=== PATIENT | male | born 1995 | race Caucasian/White ===

== ENCOUNTER 2019-03-20 21:28 | Emergency (ER) | payer SELFPAY ==
[~2019-03-20] VITALS: Ht 165.1 cm; Wt 80.7 kg
[2019-03-20 21:43] VITALS: BP 134/65
--- NOTE | 2019-03-20 21:46 | NUR ---
WHEEL CHAIR ASSISTED TO LOBBY.
--- NOTE | 2019-03-20 21:55 | NUR ---
PT TAKEN TO XRAY FROM [facility]
--- NOTE | 2019-03-20 22:01 | NUR ---
PT RETURN FROM [facility] TO [facility]
--- NOTE | 2019-03-20 22:10 | NUR ---
PATIENT WHEELCHAIRED TO ER BED 4
--- NOTE | 2019-03-20 22:24 | NUR ---
Note [email or web address] in EDM - 03/20/19 at 2226 by MEDBEN 23 Y/O MALE BIB SELF C/O OF ANKLE PAIN X1 HR AFTER PLAYING SOCCER AND ROLLED RIGHT ANKLE. EDEMA ON LATERAL SIDE. SLIGHT RED EDEMA. 10/10 BURNING PAIN. PAIN EXACERBATED WITH AMBULATION AND PRESSURE. CAP REFILL <3 SEC. NUMBNESS TO AFFECTED AREA ONLY. +2 PERDAL PULSES BILATERALLY. ALOCX4. DENIES N/V/D. HX: DENIES RX. NONE NKDA
--- NOTE | 2019-03-20 22:26 | NUR ---
23 Y/O MALE BIB SELF C/O OF ANKLE PAIN X1 HR AFTER PLAYING SOCCER AND ROLLED RIGHT ANKLE. EDEMA ON LATERAL SIDE. SLIGHT RED EDEMA. 10/10 BURNING PAIN. PAIN EXACERBATED WITH AMBULATION AND PRESSURE. CAP REFILL <3 SEC. NUMBNESS TO AFFECTED AREA ONLY. +2 PERDAL PULSES BILATERALLY. ALOCX4. DENIES N/V/D. ERMD MADE AWARE OF STATUS. SIDE RAILS X1. ELEVATED RIGHT ANKLE AND PLACED ICE PACK. HX: DENIES RX. NONE NKDA
--- NOTE | 2019-03-20 22:44 | NUR ---
PATIENT IS SITTING QUIETLY IN BED AND GIRLFRIEND AT BEDSIDE.
[2019-03-20] MEDS ORDERED: IBUPROFEN 800 MG TAB PO ONE (22:45)
--- NOTE | 2019-03-20 23:10 | NUR ---
PLACED KAITLIN WRAP ON PATIENT'S RIGHT ANKLE. SIZED CRUTCHES TO PATIENT
[2019-03-20 23:19] VITALS: BP 134/65
--- NOTE | 2019-03-20 23:19 | NUR ---
Patient discharged with v/s stable. Written and verbal after care instructions given and explained. Patient alert, oriented and verbalized understanding of instructions. Ambulatory with steady gait. All questions addressed prior to discharge. ID band removed. Patient advised to follow up with PMD. Rx of IBUPROFEN WAS given. Patient educated on indication of medication including possible reaction and side effects. Opportunity to ask questions provided and answered. PT STATED [PAIN WAS LEVEL 3/10 PRIOR TO D/C Addendum: 03/20/19 at 2340 by MED Patient discharged with v/s stable. Written and verbal after care instructions given and explained. Patient alert, oriented and verbalized understanding of instructions. Ambulatory with CRUTCHES. PT TOLERATED WELL. All questions addressed prior to discharge. ID band removed. Patient advised to follow up with PMD. Rx of IBUPROFEN WAS given. Patient educated on indication of medication including possible reaction and side effects. Opportunity to ask questions provided and answered. PT STATED [PAIN WAS LEVEL 3/10 PRIOR TO D/C
== END 2019-03-20 23:19 | disposition home or self-care (01) ==
LOC: MED 21:28
DX: S93.401A Sprain of unspecified ligament of right ankle, initial encounter (principal); X58.XXXA Exposure to other specified factors, initial encounter; Y93.66 Activity, soccer; Y92.89 Other specified places as the place of occurrence of the external cause; Y99.8 Other external cause status
CPT/HCPCS: 73610; 99283

== ENCOUNTER 2021-01-19 19:53 | Emergency (ER) | payer SELFPAY ==
[~2021-01-19] VITALS: Ht 172.7 cm; Wt 81.6 kg
[2021-01-19 19:59] VITALS: BP 135/86
--- NOTE | 2021-01-19 20:36 | NUR ---
pt w/c assisted to bed #3
--- NOTE | 2021-01-19 20:45 | NUR ---
PT BIB SELF FOR C/O 10 PAIN TO [facility] S/P DOG BITE AT 1900 TODAY. PUNCTURE WOUNDS NOTED TO RIGHT CALF X 4. BLEEDING CONTROLLED. MILD SWELLING NOTED. SKIN IS WARM, DRY AND PINK. CAP REFILL < 3 SECONDS. ANIMAL BITE FORM FILLED OUT. PT DENIES PREVIOUSLY RECEIVING TETANUS VACCINE. MED HX: DENIES ALLERGIES: NKA
[2021-01-19 21:41] VITALS: BP 117/73
[2021-01-19] MEDS ORDERED: oxyCODONE/APAP 5/325 MG 1 TAB TAB PO ONE (21:45)
--- NOTE | 2021-01-19 22:25 | NUR ---
ERMD AT BEDSIDE.
[2021-01-19] MEDS ORDERED: LIDOCAINE MPF 1% 10 MG/ML VIAL INJ ONE (22:30)
[2021-01-19] MEDS ORDERED: AMOX-1000 PO (23:23)
[2021-01-19] MEDS ORDERED: ACET-8386 PO (23:23)
--- NOTE | 2021-01-19 23:43 | NUR ---
Patient discharged with v/s stable. Written and verbal after care instructions given and explained. Patient alert, oriented and verbalized understanding of instructions. Ambulatory with steady gait. All questions addressed prior to discharge. ID band removed. Patient advised to follow up with PMD. Rx of NORCO AND AUGMENTIN given. Patient educated on indication of medication including possible reaction and side effects. Opportunity to ask questions provided and answered.
== END 2021-01-19 23:43 | disposition home or self-care (01) ==
LOC: MED 19:53
DX: S81.831A Puncture wound without foreign body, right lower leg, initial encounter (principal); S81.811A Laceration without foreign body, right lower leg, initial encounter; Z79.899 Other long term (current) drug therapy; W54.0XXA Bitten by dog, initial encounter; Y93.89 Activity, other specified; Y92.89 Other specified places as the place of occurrence of the external cause; Y99.8 Other external cause status
CPT/HCPCS: 12001; 90471; 90715; 99283; J2001

== ENCOUNTER 2021-02-01 11:26 | Emergency (ER) | payer SELFPAY ==
[~2021-02-01] VITALS: Ht 165.1 cm; Wt 77.1 kg
[~2021-02-01 11:26] MED LIST: ACET-8386 PO; AMOX-1000 PO
[2021-02-01 11:38] VITALS: BP 126/82
--- NOTE | 2021-02-01 11:52 | NUR ---
NO NURSING INTERVENTION PROVIDED. PT SEEN AND D/C BY DR CEDILLO
--- NOTE | 2021-02-01 11:54 | NUR ---
Patient discharged with v/s stable. Written and verbal after care instructions given and explained. Patient verbalized understanding. Ambulatory with steady gait. All questions addressed prior to discharge. Advised to follow up with PMD.
== END 2021-02-01 11:54 | disposition home or self-care (01) ==
LOC: MED 11:26
DX: S81.811D Laceration without foreign body, right lower leg, subsequent encounter (principal); Z79.899 Other long term (current) drug therapy; X58.XXXD Exposure to other specified factors, subsequent encounter
CPT/HCPCS: 99281